=== PATIENT | male | born 1950 | race Two or more races ===

== ENCOUNTER 2018-06-28 23:49 | Inpatient (IN) | payer BC, MEDICAID, OTHER ==
[~2018-06-28] VITALS: Ht 175.3 cm; Wt 114.8 kg
[2018-06-29 00:22] LABS: BASOPHILS # (AUTO) 0.1 /CMM (0.0-0.2); BASOPHILS % (AUTO) 1.3 % (0.0-2.0); EOSINOPHILS % (AUTO) 2.3 % (0.0-6.0); HEMATOCRIT 41 % (39-51); HEMOGLOBIN 13.8 g/dL (13.5-17.5); LYMPHOCYTES # (AUTO) 1.6 /CMM (0.8-4.8); LYMPHOCYTES % (AUTO) 24.2 % (20.0-44.0); MEAN CORPUSCULAR HGB CONC 34 g/dl (31.0-36.0); MEAN CORPUSCULAR VOLUME 89 fL (80-96); MONOCYTES # (AUTO) 0.8 /CMM (0.1-1.30); MONOCYTES % (AUTO) 11.9 % (2.0-12.0); NEUTROPHILS % (AUTO) 60.3 % (43.0-81.0); PLATELET COUNT (AUTO) 226 /CMM (150-450); RED BLOOD CELL COUNT(AUTO) 4.62 MIL/uL (4.5-6.0); WHITE BLOOD COUNT (AUTO) 6.7 K/uL (4.3-11.0)
[2018-06-29] MEDS ORDERED: HYDROCODONE/APAP 5/325MG 1 EACH TABLET PO ONE (00:30)
[2018-06-29] MEDS ORDERED: hydrALAZINE HCL IV 20 MG VIAL IV ONE (00:30)
[2018-06-29] MEDS ORDERED: HYDROMORPHONE 1 MG/1 ML DISP.SYRIN IV ONE (00:30)
[2018-06-29] MEDS ORDERED: hydrALAZINE HCL IV 20 MG VIAL ONE (00:33)
[2018-06-29 00:34] LABS: CREATININE 1.7 mg/dL (0.6-1.3); POTASSIUM 4.3 mmol/L (3.5-5.1)
[2018-06-29] MEDS ORDERED: HYDROMORPHONE INJ 2 MG/ML DISP.SYRIN ONE (00:34)
--- NOTE | 2018-06-29 00:43 | NUR ---
Presented with generalyzed weakness,SOB and headache,awake,alert,not in any distress.
[2018-06-29 00:51] LABS: ALBUMIN 3.6 g/dL (3.4-5.0); BILIRUBIN,DIRECT 0.1 mg/dL (0.0-0.2); BILIRUBIN,TOTAL 0.4 mg/dL (0.2-1.0); TOTAL PROTEIN, SERUM 7.6 g/dL (6.4-8.2)
--- NOTE | 2018-06-29 00:51 | NUR ---
[address] of head
[2018-06-29 02:45] LABS: APPEARANCE,URINE CLEAR (CLEAR); BILIRUBIN,URINE NEGATIVE (NEGATIVE); BLOOD, URINE NEGATIVE Ery/uL (NEGATIVE); COLOR,URINE YELLOW (YELLOW); KETONES,URINE NEGATIVE (NEGATIVE); LEUKOCYTE ESTERASE ,URINE NEGATIVE (NEGATIVE); NITRITE, URINE NEGATIVE (NEGATIVE); PROTEIN,URINE 2+ mg/dl (NEGATIVE); UGLUCOSE NEGATIVE (NEGATIVE)
[2018-06-29 02:52] LABS: BACTERIA,URINE Few /HPF (None Seen); RBC,URINE 0-2 /HPF (0-2); SQUAMOUS EPITHELIAL CELL,UR Rare /HPF (None Seen); WBC,URINE 0-2 /HPF (0-3)
--- NOTE | 2018-06-29 02:56 | NUR ---
PER KAYLYNN "I GIVE YOU A VERBAL AUTH TO ADMIT PT". NOTIFIED.
[2018-06-29] MEDS ORDERED: ASPIRIN 325 MG TABLET ONE (03:14)
[2018-06-29] MEDS ORDERED: ENOXAPARIN SODIUM 40 MG/0.4 ML DISP.SYRIN SQ SCH (03:30)
[2018-06-29] MEDS ORDERED: ASPIRIN 325 MG TABLET PO ONE (03:30)
[2018-06-29] MEDS ORDERED: ACETAMINOPHEN 325 MG TABLET PO PRN (03:30)
[2018-06-29] MEDS ORDERED: Z GUARD REMEDY 2 OZ OINT TP PRN (03:30)
[2018-06-29] MEDS ORDERED: MORPHINE SULFATE INJ 2 MG/ML DISP.SYRIN IV PRN ×2 (03:30→11:30)
[2018-06-29] MEDS ORDERED: ONDANSETRON HCL/PF 4 MG/2 ML VIAL IVP PRN (03:30)
[2018-06-29] MEDS ORDERED: MAG HYDROX/AL HYDROX/SIMETH 30 ML UDC PO PRN (03:30)
[2018-06-29] MEDS ORDERED: MAGNESIUM HYDROXIDE 30 ML UDC PO PRN (03:30)
[2018-06-29] MEDS ORDERED: HYDROCODONE/APAP 5/325MG 1 EACH TABLET PO PRN (03:30)
--- NOTE | 2018-06-29 03:32 | NUR ---
AWAITING BEED FOS ADMISSION.STABLE,AWAKE,ALERT.
[2018-06-29] MEDS ORDERED: ENOXAPARIN SODIUM 40 MG/0.4 ML DISP.SYRIN SQ ONE (03:38)
--- NOTE | 2018-06-29 04:25 | NUR ---
RECEIVED PATIENT FROM ER FOR DX NSTEMI. AO X 3, ABLE TO MAKE NEEDS KNOWN. NO ACUTE DISTRESS NOTED. 5/10 HEADACHE AT THIS TIME. SKIN INTACT. SAFETY REMINDERS GIVEN. ORIENTATION TO ROOM AND UNIT GIVEN TO PATIENT. ON LOW BED WITH BILATERAL UPPER SIDE RAILS UP. CALL JOHNSON WITHIN EASY REACH. WILL CONTINUE TO MONITOR.
--- NOTE | 2018-06-29 04:31 | NUR ---
0425 TRANSFERED TO [facility] RM # [id number] BED #2,REPORT WAS GIVEN TO [place] BY CHARGE NURSE.PATIENT STABLE,AWAKE,ALERT.
--- NOTE | 2018-06-29 04:45 | NUR ---
7812 PAGED CARPENTER WOODEN TANK ERECTING KALYAN TO REPORT PATIENT'S BIGEMY RHYTHM, AWAITING CALL BACK. PATIENT AWAKE AND VERBALLY RESPONSIVE. NO C/O CHEST PAIN OR DISCOMFORT WHEN ASKED. FAMILY MEMBERS AT BEDSIDE AND UPDATED ON PATIENT'S CONDITION AND PLAN OF CARE.
--- NOTE | 2018-06-29 05:15 | NUR ---
0515 SANTIAGO BIGGS CALLED BACK AND UPDATED ON PATIENT'S BIGEMY RHYTHM AND CURRENT CONDITION WITH ORDER TO DO STAT CBC AND BMP. ORDER NOTED, SPINDLE PLUMBER NEEL MADE AWARE.
[2018-06-29 05:57] LABS: BASOPHILS % (AUTO) 0.5 % (0.0-2.0); EOSINOPHILS % (AUTO) 0.5 % (0.0-6.0); HEMATOCRIT 40 % (39-51); HEMOGLOBIN 13.4 g/dL (13.5-17.5); LYMPHOCYTES # (AUTO) 1.1 /CMM (0.8-4.8); LYMPHOCYTES % (AUTO) 16.4 % (20.0-44.0); MEAN CORPUSCULAR HGB CONC 33 g/dl (31.0-36.0); MEAN CORPUSCULAR VOLUME 89 fL (80-96); MONOCYTES # (AUTO) 0.5 /CMM (0.1-1.30); MONOCYTES % (AUTO) 7.8 % (2.0-12.0); NEUTROPHILS # (AUTO) 4.9 /CMM (1.8-8.9); NEUTROPHILS % (AUTO) 74.8 % (43.0-81.0); PLATELET COUNT (AUTO) 205 /CMM (150-450); RED BLOOD CELL COUNT(AUTO) 4.51 MIL/uL (4.5-6.0); WHITE BLOOD COUNT (AUTO) 6.6 K/uL (4.3-11.0)
[2018-06-29 06:07] LABS: CALCIUM, SERUM 7.7 mg/dL (8.5-10.1); CREATININE 1.6 mg/dL (0.6-1.3); POTASSIUM 4.1 mmol/L (3.5-5.1)
--- NOTE | 2018-06-29 06:38 | NUR ---
PATIENT ASLEEP, EASILY AROUSABLE. RESPIRATIONS EVEN. NO SIGNS OF PAIN NOTED. NEEDS ATTENDED. SAFETY PRECAUTIONS AND COMFORT MEASURES IN PLACE. WILL GIVE REPORT TO DAY SHIFT FOR CONTINUITY OF CARE.
[2018-06-29] MEDS ORDERED: ASPI-1152 PO (07:55)
[2018-06-29] MEDS ORDERED: COLC0.6T67 PO (07:55)
[2018-06-29] MEDS ORDERED: FURO20TA4 PO (07:55)
[2018-06-29] MEDS ORDERED: FINA5TAB11 PO (07:55)
[2018-06-29] MEDS ORDERED: CARV25TA2 PO (07:55)
[2018-06-29 08:00] VITALS: BP 142/67
[2018-06-29] MEDS ORDERED: FUROSEMIDE 40 MG TABLET PO SCH (09:00)
[2018-06-29] MEDS ORDERED: AMLODIPINE BESYLATE 5 MG TABLET PO SCH (09:00)
[2018-06-29] MEDS ORDERED: METOPROLOL TARTRATE 25 MG TABLET PO SCH (09:00)
[2018-06-29] MEDS ORDERED: COLCHICINE 0.6 MG TABLET PO PRN (10:30)
[2018-06-29] MEDS ORDERED: REGADENOSON 0.4 MG/5 ML DISP.SYRIN IVP ONE (11:30)
[2018-06-29 12:00] VITALS: BP 130/89
[2018-06-29] MEDS: CARVEDILOL 12.5 MG TABLET PO SCH ×2 (12:01→21:27)
[2018-06-29] MEDS ORDERED: MORPHINE SULFATE INJ 10 MG/ML DISP.SYRIN IV PRN (13:30)
[2018-06-29 16:00] VITALS: BP 155/83
--- NOTE | 2018-06-29 17:41 | NUR ---
Met with patient and family at bedside. Patient speaks Nepali only, he lives with family in a single level home. He is ambulatory and independent with adl's. Has no DME or homehealth reported.His pcp is Dr. Zuly Allred in [place]. Has good family support. Plan to return home, family will provide ride. Addendum: 06/29/18 at 1741 by SAMINA ARORA RN Amended: Links added.
--- NOTE | 2018-06-29 17:56 | NUR ---
RN NOTE: PATIENT REMAINS ALERT AWAKE ORIENTED X 4. ON ROOM AIR, NO BREATHING DISTRESS NOTED. DENIES PAIN & DISCOMFORT. AMBULATORY. SKIN INTACT. NO FALL/INJURY NOTED DURING SHIFT. PLAN [place] STRESS TEST TOMORROW. SAFETY MEASURES OBSERVED. ENCOURAGE TO USE CALL LIGHT FOR ASSISTANCE.
--- NOTE | 2018-06-29 19:40 | NUR ---
FORM SETTER HELPER NOTE: PATIENT RESTING IN BED, NO ACUTE DISTRESS NOTED, FAMILY AT BEDSIDE. BREATHING EVEN AND UNLABORED, NO SOB NOTED. IV TO RIGHT HAND IN PLACE. PATIENT TO HAVE STRESS TEST IN THE MORNING, TO HAVE CONSENT TO BE SIGNED. INFORMED PATIENT THAT HE CAN NOT EAT OR DRINK AFTER MIDNIGHT, VERBALIZED UNDERSTANDING. BED LOCKED AND IN LOWEST POSITION, CALL LIGHT IN REACH. WILL CONTINUE TO MONITOR.
[2018-06-29 20:00] VITALS: BP 140/87
[2018-06-29 20:10] VITALS: BP 140/87
[2018-06-29] MEDS ORDERED: CARVEDILOL 12.5 MG TABLET PO SCH (21:00)
[2018-06-29] MEDS ORDERED: ATORVASTATIN 10 MG TABLET PO SCH (22:00)
[2018-06-30] VITALS (8 sets, daily range): BP systolic 103–156; BP diastolic 48–92
--- NOTE | 2018-06-30 00:10 | NUR ---
CLINICAL EDUCATION CONSULTANT NOTE: PATIENT NPO FOR STRESS TEST IN MORNING. FOOD AND DRINKS MOVED FROM PATIENT BEDSIDE. INSTRUCTED TO PATIENT TO NOT EAT OR DRINK FOR STRESS TEST. CONSENT SIGNED AND IN CHART. WILL CONTINUE TO MONITOR.
[2018-06-30 03:13] LABS: BASOPHILS # (AUTO) 0.1 /CMM (0.0-0.2); BASOPHILS % (AUTO) 0.9 % (0.0-2.0); EOSINOPHILS % (AUTO) 2.5 % (0.0-6.0); HEMATOCRIT 40 % (39-51); HEMOGLOBIN 13.4 g/dL (13.5-17.5); LYMPHOCYTES # (AUTO) 1.5 /CMM (0.8-4.8); LYMPHOCYTES % (AUTO) 28.2 % (20.0-44.0); MEAN CORPUSCULAR HGB CONC 33 g/dl (31.0-36.0); MEAN CORPUSCULAR VOLUME 89 fL (80-96); MONOCYTES # (AUTO) 0.6 /CMM (0.1-1.30); MONOCYTES % (AUTO) 11.1 % (2.0-12.0); NEUTROPHILS # (AUTO) 3.1 /CMM (1.8-8.9); NEUTROPHILS % (AUTO) 57.3 % (43.0-81.0); PLATELET COUNT (AUTO) 196 /CMM (150-450); RED BLOOD CELL COUNT(AUTO) 4.54 MIL/uL (4.5-6.0); WHITE BLOOD COUNT (AUTO) 5.4 K/uL (4.3-11.0)
[2018-06-30 03:32] LABS: ALBUMIN 3.5 g/dL (3.4-5.0); BILIRUBIN,TOTAL 0.7 mg/dL (0.2-1.0); CALCIUM, SERUM 8.3 mg/dL (8.5-10.1); CREATININE 1.6 mg/dL (0.6-1.3); MAGNESIUM 2.1 mg/dL (1.8-2.4); PHOSPHORUS 4.8 mg/dL (2.5-4.9); POTASSIUM 3.9 mmol/L (3.5-5.1); TOTAL PROTEIN, SERUM 7.2 g/dL (6.4-8.2)
[2018-06-30 03:40] LABS: THYROID STIMULATING HORMONE 2.463 uIU/mL (0.358-3.74)
--- NOTE | 2018-06-30 07:43 | NUR ---
MS RN OPENING NOTES RECEIVED PATIENT IN STABLE CONDITION. IN NO APPARENT DISTRESS. BEDSIDE RAILS ARE UPX2. BED IS LOCKED AND LOWERED. CALL LIGHT IS WITHIN REACH. IV LINE IS INTACT AND PATENT. WILL CONTINUE TO MONITOR PATIENT.
[2018-06-30] MEDS ORDERED: FUROSEMIDE 20 MG TABLET PO SCH (09:00)
[2018-06-30] MEDS: ASPIRIN 81 MG TAB.CHEW PO SCH ×2 (09:00→10:31)
[2018-06-30] MEDS: FINASTERIDE (5 MG) 5 MG TABLET PO SCH ×2 (09:00→10:31)
[2018-06-30] MEDS: ENOXAPARIN SODIUM 40 MG/0.4 ML DISP.SYRIN SQ SCH (09:00)
[2018-06-30] MEDS: CARVEDILOL 12.5 MG TABLET PO SCH ×3 (09:00→21:26)
[2018-06-30] MEDS ORDERED: ASPIRIN EC 81 MG TABLET.DR PO SCH (09:00)
[2018-06-30] MEDS: DILTIAZEM HCL CD 240 MG PO SCH ×2 (09:30→10:33)
--- NOTE | 2018-06-30 10:02 | NUR ---
NON ADMINISTERED LOVENOX. PATIENT TAKEN FOR NON STRESS TEST. PATIENT NOT IN THE UNIT AT THIS TIME.
[2018-06-30] MEDS ORDERED: METOPROLOL TARTRATE INJ 5 MG/5 ML AMPUL IVP ONE (14:00)
--- NOTE | 2018-06-30 15:27 | NUR ---
PER DOCTOR JANAY. DO NOT ADMINISTER METOPROLOL IF SBP IS <120. PATIENTS BLOOD PRESSURE IS 103/48. NON ADMINISTERED METOPROLOL.
--- NOTE | 2018-06-30 18:35 | NUR ---
MS RN CLOSING NOTES PATIENT IS IN STABLE CONDITION. IN NO APPARENT DISTRESS. BEDSIDE RAILS ARE UPX2. BED IS LOCKED AND LOWERED. CALL LIGHT IS WITHIN REACH. IV LINE IS INTACT AND PATENT. ALL NEEDS WERE MET. WILL ENDORSE CARE TO LAMP SHADE SEWER NURSE FOR CHER.
--- NOTE | 2018-06-30 19:30 | NUR ---
FOUNDER PRESIDENT AND CEO NOTE: RECEIVED PT SITTING ON BED, FAMILY AT BEDSIDE. NO APPARENT DISTRESS NOTED. NO COMPLAINTS OF PAIN OR DISCOMFORT NOTED. NO SOB NOTED. ON TELE MONITOR BIGEMINY HR 76BPM. IV ON RIGHT HAND #20 INTACT AND PATENT, FLUSHING WELL. KEPT CLEAN, DRY AND COMFORTABLE. SAFETY AND FALL PRECAUTIONS OBSERVED AND MAINTAINED. WILL CONTINUE TO MONITOR PT.
[2018-06-30] MEDS ORDERED: ATORVASTATIN 10 MG TABLET PO SCH (22:00)
--- NOTE | 2018-06-30 22:16 | NUR ---
OPTOMETRY ASSISTANT NOTE: PT WAS TRANSFERRED TO [facility]. NO COMPLAINTS OF PAIN OR DISCOMFORT AT THIS TIME. NO SOB NOTED. IV ON RIGHT HAND #20 INTACT AND PATENT, FLUSHING WELL. REPORT CALLED TO SARY. DISCHARGE INSTRUCTIONS GIVEN. EXIT CARE DONE.
--- NOTE | 2018-06-30 22:19 | NUR ---
LOCK ASSEMBLER NOTE: HEART RATE NOTED TO BE ON THE 30-40s. RN SARY FROM [facility] NOTIFIED. RUBINA BIGGS NP MADE AWARE AND STATED THAT PT OK FOR TRANSFER.
[2018-07-01 14:15] LABS: PTH, INTACT 120 pg/mL (15-65)
[2018-07-03 06:06] LABS: *SPE ALBUMIN 3.3 g/dL (2.9-4.4); *SPE ALPHA-1-GLOBULIN 0.3 g/dL (0.0-0.4); *SPE ALPHA-2-GLOBULIN 0.7 g/dL (0.4-1.0); *SPE BETA GLOBULIN 1.2 g/dL (0.7-1.3); *SPE GLOBULIN, TOTAL 3.3 g/dL (2.2-3.9); *SPE M-SPIKE Not Observed g/dL (Not Observed); *SPEGAMMA GLOBULIN 1.2 g/dL (0.4-1.8)
== END 2018-06-30 22:20 | disposition short-term general hospital (02) | DRG 199 ==
LOC: ER 23:53 → TELE1 06-29 03:29
PROVIDERS: ADMIT Internal Medicine; ATTEND Internal Medicine
DX: I16.0 Hypertensive urgency (principal); N17.0 Acute kidney failure with tubular necrosis; I21.A1 Myocardial infarction type 2; I13.0 Hypertensive heart and chronic kidney disease with heart failure and stage 1 through stage 4 chronic kidney disease, or unspecified chronic kidney disease; N18.9 Chronic kidney disease, unspecified; I25.10 Atherosclerotic heart disease of native coronary artery without angina pectoris; E78.5 Hyperlipidemia, unspecified; E66.9 Obesity, unspecified; N40.0 Benign prostatic hyperplasia without lower urinary tract symptoms; I48.0 Paroxysmal atrial fibrillation; G47.33 Obstructive sleep apnea (adult) (pediatric); I25.2 Old myocardial infarction; Z95.5 Presence of coronary angioplasty implant and graft; Z87.891 Personal history of nicotine dependence; Z86.73 Personal history of transient ischemic attack (TIA), and cerebral infarction without residual deficits; Z68.37 Body mass index [BMI] 37.0-37.9, adult; R00.8 Other abnormalities of heart beat; R73.9 Hyperglycemia, unspecified; I50.32 Chronic diastolic (congestive) heart failure
CPT/HCPCS: 36415; 70450-TC; 71045-TC; 76770-TC; 80048-TC; 80053-TC; 80061-TC; 80076-TC; 81000-TC; 82550-TC; 83735-TC; 83880; 83970; 84100-TC; 84155; 84165; 84443-TC; 84484-TC; 85025-TC; 85730-TC; 87081-TC; 93307-TC; A9502; G0378; J0360; J1170; J1650; J2785; J3490